=== PATIENT | male | born 1970 | race Caucasian/White ===

== ENCOUNTER 2024-01-06 14:26 | Emergency (ER) | payer OTHER ==
[~2024-01-06] VITALS: Ht 170.2 cm; Wt 72.6 kg
[2024-01-06 14:56] VITALS: BP 116/68; TEMP 97.9
[2024-01-06 16:45] VITALS: O2SAT 98
== END 2024-01-06 16:46 | disposition home or self-care (01) ==
LOC: ER 14:43
DX: M79.671 Pain in right foot (principal); R07.81 Pleurodynia; M79.89 Other specified soft tissue disorders; F20.9 Schizophrenia, unspecified; F19.10 Other psychoactive substance abuse, uncomplicated; Z60.2 Problems related to living alone; Z59.00 Homelessness unspecified
CPT/HCPCS: 71111-TC; 73630-TC